=== PATIENT | female | born 1995 | race Two or more races ===

== ENCOUNTER 2022-05-28 05:12 | Inpatient (IN) | payer OTHER ==
[~2022-05-28] VITALS: Ht 152.4 cm; Wt 62.6 kg
[2022-05-28] MEDS ORDERED: PRENATAL CAPLE1 EAC1 PO (06:43)
[2022-05-28] MEDS ORDERED: SYNTHROID50 MCG PO (06:44)
== END 2022-05-30 13:35 | disposition home or self-care (01) | DRG 807 ==
LOC: LDR 05:12 → OB/GYN 14:56
PROVIDERS: ADMIT Specialist; ATTEND Specialist
PROC: 10E0XZZ Delivery of Products of Conception, External Approach (ICD-10-PCS; principal; 2022-05-28)
PROC: 0KQM0ZZ Repair Perineum Muscle, Open Approach (ICD-10-PCS; 2022-05-28)
PROC: 0W8NXZZ Division of Female Perineum, External Approach (ICD-10-PCS; 2022-05-28)
PROC: 4A1HXCZ Monitoring of Products of Conception, Cardiac Rate, External Approach (ICD-10-PCS; 2022-05-28)
DX: O70.1 Second degree perineal laceration during delivery (principal); Z37.0 Single live birth; O99.820 Streptococcus B carrier state complicating pregnancy; Z3A.39 39 weeks gestation of pregnancy; Z20.822 Contact with and (suspected) exposure to COVID-19